=== PATIENT | female | born 1980 | race Hispanic/Latino ===

== ENCOUNTER 2025-01-20 16:14 | Emergency (ER) | payer BC ==
[~2025-01-20] VITALS: Ht 167.6 cm; Wt 70.3 kg
[2025-01-20] MEDS: ketOROlac 15MG/ML VIAL (15MG/ML) IV SCH (17:11)
[2025-01-20] MEDS: ondanSETRON 4MG INJ IVP SCH (17:11)
--- NOTE | 2025-01-20 18:25 | HMCIMG ---
EXAM: CR left Hip, 3 View. CLINICAL HISTORY: r/o fx COMPARISON: None provided. FINDINGS: BONES: No acute fracture or aggressive appearing osseous lesion. JOINTS: No dislocation. The joint spaces are normal. SOFT TISSUES: The soft tissues are unremarkable. IMPRESSION: No acute osseous abnormality. /[place]
--- NOTE | 2025-01-20 18:26 | HMCIMG ---
EXAM: CR left Hand, 3 View. CLINICAL HISTORY: r/o fx COMPARISON: None provided. FINDINGS: BONES: No acute osseous pathology evident. JOINTS: No evidence of dislocation. The joint spaces are normal. SOFT TISSUES: The soft tissues appear within normal limits. No radiopaque foreign body is seen. IMPRESSION: No acute pathology evident. No acute fracture or dislocation. /[place]
--- NOTE | 2025-01-20 18:26 | HMCIMG ---
EXAM: CR left Wrist, 3 View. CLINICAL HISTORY: r/o fx COMPARISON: None provided. FINDINGS: BONES: No acute osseous abnormality. No acute fracture. JOINTS: No dislocation. The carpal bones demonstrate normal alignment. SOFT TISSUES: The soft tissues are unremarkable. IMPRESSION: No acute osseous abnormality. No acute fracture or dislocation. /[place]
--- NOTE | 2025-01-20 18:26 | HMCIMG ---
EXAM: CR left Femur, 4 View. CLINICAL HISTORY: r/o fx COMPARISON: None provided. FINDINGS: BONES: No acute fracture or aggressive appearing osseous lesion. JOINTS: No dislocation. SOFT TISSUES: The soft tissues are unremarkable. IMPRESSION: No acute osseous abnormality. /[place]
--- NOTE | 2025-01-20 18:55 | ERN ---
General Chief Complaint: Mechanical Fall Stated Complaint: LEFT HIP PAIN, LT WRIST PAIN, FALL Time Seen by MD: 18:06 Time Seen by Midlevel: 18:06 Source: patient History of Present Illness Initial Comments The patient is a 44-year-old female presenting to the emergency department for evaluation of left hip/left lower extremity pain after she fell 6 ft from her porch. Denies any head injury or loss of consciousness. She has significant amount of pain and swelling to her left thigh. She also reports pain to her left hand. Denies any other symptoms Allergies: Coded Allergies: No Known Allergies (Unverified Allergy, Unknown, 01/20/25) Past Medical History Past Medical History: No Pertinent History Past Surgical History: Hysterectomy ROS Dictation CONSTITUTIONAL: Negative except for HPI HEAD/FACE: Negative except for HPI EENT: Negative except for HPI RESPIRATORY: Negative except for HPI GASTROINTESTINAL/ABDOMINAL: Negative except for HPI GENITOURINARY: Negative except for HPI MUSCULOSKELETAL: Negative except for HPI INTEGUMENTARY: Negative except for HPI NEUROLOGICAL/PSYCH: Negative except for HPI HEMATOLOGIC/LYMPHATIC: Negative except for HPI All Systems Negative, Except as noted above. 13 point review of systems assessed and all negative except for above. Physical Exam Physical Exam Dictation Vital Signs reviewed General Appearance: Alert, oriented x 3, no acute distress, well developed, nourished. Head and Face: non-traumatic. Eyes: PERRL, pink conjunctivas, eyelid no trauma, anterior chamber with arcus senilis. Ears: Pinnas intact and no signs of trauma or erythema ear canals clear and no discharge TM no erythema Nose: No discharge, no bleeding. Oropharynx: Mouth normal, tongue pink, pharynx clear,no erythema, tonsils no exudates, no abscesses noted, mucous membrane moist Neck: Supple, non-tender, no thyromegaly, no masses, no JVD, no bruits Breast:Deferred Chest:No tenderness, no crepitus, no paradoxical movement, no retractions Lungs:Clear, well-ventilated, symmetric, no rales, no wheezing, no rhonchi, no stridor, good breath sounds bilaterally Heart: Regular rate, regular rhythm, no murmur, no gallops Vascular: no peripheral edema, Abdomen: Soft, positive bowel sounds, nondistended, no guarding, nontender, no rebound, no masses no hepatomegaly, no splenomegaly, no Rust's sign, no hernias. Rectal: Deferred Genital: Deferred Neurological: Normal speech, motor function intact, sensory function intact Musculoskeletal: Neck nontender, full range of motion, back nontender, full range of motion, Extremities: Tenderness and swelling to the left lateral thigh, restricted range motion to the left hip secondary to pain, swelling and tenderness over the left wrist Skin: Color pink, dry, no turgor, no rash, no lacerations, no abrasions, no contusions. Lymphatic: Deferred MDM MDM: Differential diagnosis: Fracture, sprain, strain, contusion Rationale: 44-year-old female presenting to the emergency department for ev aluation of left hip/left lower extremity pain after she fell 6 ft from her porch. Denies any head injury or loss of consciousness. She has significant amount of pain and swelling to her left thigh. She also reports pain to her left hand. Denies any other symptoms Patient care transition to al at 1900 from GENE Chung due to shift ending. X-rays of the left hip, femur, wrist, hand obtained negative for fractures. Upon receiving patient CT pelvis and left lower extremity pending due to patient continued to be in pain and limited range of motion, with hematoma noted to the left thigh. Patient refused CT. Patient was educated on findings and diagnosis. Patient was educated to return to the emergency department if any worsening symptoms. Patient verbalized understanding. Patient stable for discharge. There are no social concerns with this patient. I independently interpreted the test that were performed, results were reviewed by me and considered findings on radiology if ordered. Medical management and examination interpretation discussions were had by me with other qualified healthcare professionals as indicated for the patient's care. ED Course Orders Procedure Category Date Status Time Hip Unilat 4vw Left RAD 01/20/25 Resulted 16:41 Femur 2 Vw Left RAD 01/20/25 Resulted 16:41 Wrist Comp 3+Vws Lt RAD 01/20/25 Resulted 16:41 Hand 3+Vws Lt RAD 01/20/25 Resulted 16:41 Morphine 2mg Syg PHA 01/20/25 Complete (Morphine 2mg Syg) 17:00 Ondansetron 4mg Inj PHA 01/20/25 Complete (Zofran 4mg Inj) 17:00 Ketorolac PHA 01/20/25 Complete Tromethamine 15mg/Ml 17:00 Vital Signs Date Time Temp Pulse Resp B/P (MAP) Pulse Ox O2 Delivery O2 Flow Rate FiO2 01/20/25 20:01 97.9 89 20 122/77 100 Room Air* 0 21 01/20/25 16:52 97.9 82 20 106/72 100 Room Air* 0 21 01/20/25 16:18 98.6 93 22 93/67 97 Room Air 0 DX & DISP Disposition: Discharge Departure Impression: Primary Impression: Thigh contusion Condition: Stable Additional Instructions: Discharge home. Rest. Follow up with primary care in 24 hours. Return to the ER for any acute changes or worsening symptoms. If any medications were prescribed take as directed. Okay to continue home medications unless otherwise discussed during your visit in the emergency room today. Patient was also advised to follow-up with primary care physician in 1 to 2 days for continued monitoring. Referrals: SELF,REFERRAL (PCP) I performed the substantive portion of the visit. I have reviewed and personally made and approve the management plan that is documented in the notes by myself or the PATRICK. I acknowledge full responsibility for the patient's management plan. NIMCO CHUNG Jan 20, 2025 18:55 RASHAD CABRERA Jan 20, 2025 20:05
[2025-01-20] MEDS: morPHINE 2 MG SYG IVP SCH (19:57)
[2025-01-20 20:01] VITALS: BP 122/77; PULSE 89; RESP 20; TEMP 97.9; O2SAT 100
== END 2025-01-20 20:29 | disposition home or self-care (01) ==
LOC: EDH 16:14
DX: S70.12XA Contusion of left thigh, initial encounter (principal); Z90.710 Acquired absence of both cervix and uterus; X58.XXXA Exposure to other specified factors, initial encounter; Y93.89 Activity, other specified; Y92.89 Other specified places as the place of occurrence of the external cause; Y99.8 Other external cause status
CPT/HCPCS: 99284; 96374; 96375; 73130; 73503; 73552; 73110; J1885; J2270; J2405